=== PATIENT | female | born 1935 | race Caucasian/White ===

== ENCOUNTER 2018-12-17 13:25 | Day surgery (SDC) | payer OTHER, MEDICARE ==
--- NOTE | 2018-12-17 13:29 | PDHPUP ---
History & Physical Update H&P update statement: This history and physical update is based on an assessment of the patient which was completed after admission or registration (within 24 hours), but prior to the surgery/procedure. H&P update: H&P reviewed & patient examined, no change in patient's condition since H&P completed
[2018-12-17] MEDS ORDERED: fentaNYL 100 MCG/2 ML INJ IVP ONE (13:30)
[2018-12-17] MEDS ORDERED: MIDAZOLAM 2 MG/2 ML VIAL IVP ONE (13:30)
[2018-12-17] MEDS ORDERED: NS 500 ML IV ONE (13:30)
[2018-12-17] MEDS ORDERED: BENZOCAINE UNIT DOSE SPRAY HURRICAINE MM ONE (13:30)
--- NOTE | 2018-12-17 14:29 | PDANEPAE ---
ANE Past Medical History - Pulmonary History Hx Sleep Apnea: No ANE Review of Systems Review of Systems: ANE Patient History - Allergies Allergies/Adverse Reactions: evolocumab [From Ericdudley JaneVan] Allergy (Verified 12/17/18 14:07) furosemide Allergy (Verified 12/17/18 13:30) Boihxci-Qho-Eht Reductase Inhibitor Allergy (Verified 12/17/18 14:04) - Home Medications Home Medications: Coq-10 100 mg PO DAILY 12/17/18 [Last Taken 12/16/18 08:00] Ginkgo Biloba 500 mg PO DAILY 12/17/18 [Last Taken 12/16/18 08:00] Lisinopril 10 mg PO DAILY 12/17/18 [Last Taken 12/17/18 08:00] Meloxicam 15 mg PO DAILY 12/17/18 [Last Taken 12/16/18 21:00] Torsemide 20 mg PO DAILY 12/17/18 [Last Taken 12/16/18 08:00] - Smoking Hx Smoking Status: Never smoked ANE Labs/Vital Signs - Vital Signs Height: 163 cm Weight: 70.3 kg ANE Physical Exam - Airway Neck exam: decreased ROM Mallampati Score: Class 2 Mouth exam: normal dental/mouth exam - Pulmonary Pulmonary: no respiratory distress - Cardiovascular Cardiovascular: regular rate and rhythym - ASA Status ASA Status: III ANE Anesthesia Plan Total IV Anesthesia: Yes
[2018-12-17] MEDS ORDERED: PROPOFOL/EMULSION 500 MG/50 ML BOTTLE IV ONE (14:31)
[2018-12-17] MEDS ORDERED: NALOXONE HCL 0.4 MG/ML INJ IVP PRN (15:26)
[2018-12-17] MEDS ORDERED: ALBUTEROL 3 ML DEYVIAL IH PRN (15:26)
--- NOTE | 2018-12-17 15:26 | POSTANESTH ---
Post Anesthetic Evaluation Cardiovascular Status: Similar to Pre-Op Cond Respiratory Status: Similar to Pre-op Cond. Level of Consciousness/Mental Status: Mildly Sleepy, Arousable Pain Control: Adequate, Prn Tx Ordered Nausea/Vomiting Control: Adequate, Prn Tx Ordered Complications Possibly Related to Anesthesia: None Noted
--- NOTE | 2018-12-17 16:59 | ECHO ---
[email or web address] [address] [address] Main: [phone] Fax: Transesophageal Echocardiography Name: GUADALUPE POLANCO MR#: [id number] Study Date: 12/17/2018 Study Time: 02:46 PM Date of : 1935 Age: 83 year(s) Height: 162.6 cm (64 in.) Weight: 73.94 kg (163 lb.) BSA: 1.79 m2 Gender: Female Examination: HENRI Indication: Eval mitral regurgitation Image Quality: Contrast: Requested by: Lor Pineda Heart Rate: Rhythm: BP: / Procedure Staff Television Specialist: Trinh Sainz [facility] Reading Physician: Lor Pineda MD Requesting Provider: HENRI Exam Details Conclusions: Normal global systolic LV function. An agitated saline study was performed and was negative for intracardiac shunting. Height from mid interatrial septum to mitral coaptation is 3.3 cm.. No thrombus in left appendage. Severe mitral valve regurgitation is present. Two separate MR jets. The MR is central. This seems to be related to incomplete coaptation of A1-P1 and A2-P2. No prolapse. Mild thickening of the mitral leaflets. Posterior leaflet length is 1.28 cm.. The aortic valve is tri-leaflet. Mild aortic valve regurgitation is present. Mild tricuspid regurgitation is present. Measurements: Chambers Valvular Assessment AV/MV Valvular Assessment TV/PV Normal Normal Normal Name Value Range Name Value Range Name Value Range Additional Measurements: Findings: Left Ventricle: Normal global systolic LV function. Left Atrium: Patient: GUADALUPE POLANCO Study Date: 12/17/2018 Page 1 of 2 02:46 PM An agitated saline study was performed and was negative for intracardiac shunting. Height from mid interatrial septum to mitral coaptation is 3.3 cm.. Left Atrial Appendage: No thrombus in left appendage. Mitral Valve: Severe mitral valve regurgitation is present. Two separate MR jets. The MR is central. This seems to be related to incomplete coaptation of A1-P1 and A2-P2. No prolapse. Mild thickening of the mitral leaflets. Posterior leaflet length is 1.28 cm.. Aortic Valve: The aortic valve is tri-leaflet. Mild aortic valve regurgitation is present. Tricuspid Valve: Mild tricuspid regurgitation is present. l1n (No Signature Object) Patient: GUADALUPE POLANCO Study Date: 12/17/2018 Page 2 of 2 02:46 PM [id number]
== END 2018-12-17 16:50 | disposition home or self-care (01) ==
LOC: FCATH 13:25
PROVIDERS: ATTEND Internal Medicine Cardiovascular Disease
PROC: B245ZZ4 Ultrasonography of Left Heart, Transesophageal (ICD-10-PCS; principal; 2018-12-17)
DX: I35.1 Nonrheumatic aortic (valve) insufficiency (principal); I36.1 Nonrheumatic tricuspid (valve) insufficiency; Z91.81 History of falling
CPT/HCPCS: J2704

== ENCOUNTER 2018-12-25 05:49 | Day surgery (SDC) | payer OTHER, MEDICARE | END 2018-12-25 12:24 | disposition home or self-care (01) | LOC: FCATH 05:49 ==

== ENCOUNTER 2019-02-11 05:52 | Inpatient (IN) | payer OTHER ==
[2019-02-11] MEDS ORDERED: NS 1,000 ML IV ONE (06:11)
--- NOTE | 2019-02-11 06:23 | PDPROPOC ---
Sedation Plan of Care Sedation Plan of Care: mental status noted, patient educated of risks, benefits , alternatives, patient can tolerate sedation ASA Classification: ASA 3 Planned drugs: other Mallampati Score: Class 3 Mallampati Reference Image: Patient passed 3-3-2 rule?: Yes
[2019-02-11] MEDS ORDERED: LIDOCAINE 1% 300 MG/30 ML SDV ONE (06:51)
[2019-02-11] MEDS ORDERED: ceFAZolin 2 GM/DEXTROSE 100 ML IV ONE (07:00)
--- NOTE | 2019-02-11 07:06 | PDANEPAE ---
ANE History of Present Illness here for cecilia clip ANE Past Medical History - Cardiovascular History Hx Hypertension: Yes Hx Arrhythmias: No Hx Chest Pain: No Hx Coronary Artery / Peripheral Vascular Disease: Yes Hx CHF / Valvular Disease: No Hx Palpitations: No - Pulmonary History Hx COPD: No Hx Asthma/Reactive Airway Disease: No Hx Recent Upper Respiratory Infection: No Hx Oxygen in Use at Home: No Hx Sleep Apnea: No - Neurologic History Hx Cerebrovascular Accident: No Hx Seizures: No Hx Dementia: No - Endocrine History Hx Diabetes: No Hypothyroid: No Hyperthyroid: No Obesity: no - Renal History Hx Renal Disorders: No ANE Review of Systems Review of systems is: negative Review of Systems: - Exercise capacity Exercise capacity: <4 METS ANE Patient History - Allergies Allergies/Adverse Reactions: codeine Allergy (Verified 01/09/19 10:52) Vomiting evolocumab [From Repatha [employer]] Allergy (Verified 12/19/18 11:40) Itching Ypepqvx-Uuj-Hab Reductase Inhibitor Allergy (Verified 12/19/18 11:40) Other-Enter Comments - Home Medications Home medications: home medication list seen and reviewed Home Medications: Herbals/Supplements -Info Only 1 ea PO DAILY 12/17/18 [Last Taken 12/16/18 08:00 ] Lisinopril [Zestril 20 mg (*)] 20 mg PO DAILY 12/17/18 [Last Taken 12/25/18] Meloxicam 15 mg PO HS 12/17/18 [Last Taken 12/25/18] Torsemide [Demadex] 5 mg PO Q2D 12/17/18 [Last Taken 12/24/18] Cholecalciferol Vit D3 [Vitamin D3 (*)] 1,000 units PO DAILY 12/19/18 [Last Taken 12/24/18] Multivitamins [Multivitamin (*)] 1 each PO DAILY 12/19/18 [Last Taken 12/24/18] [place]-3 Fatty Acids [Fish Oil 1000 mg (*)] 1,000 mg PO DAILY 12/19/18 [Last Taken 12/24/18] Acetaminophen [Tylenol 325mg (*)] 325 mg PO Q6 PRN 01/09/19 [Last Taken Unknown] - NPO status NPO Status: no food or drink >8 hours - Smoking Hx Smoking Status: Never smoked ANE Labs/Vital Signs - Vital Signs Vital Signs: reviewed preoperatively; see RN documention for details Height: 162.56 cm Weight: 74.843 kg ANE Physical Exam - Airway Neck exam: FROM Mallampati Score: Class 1 Mouth exam: normal dental/mouth exam - Pulmonary Pulmonary: no respiratory distress - Cardiovascular Cardiovascular: regular rate and rhythym - ASA Status ASA Status: III ANE Anesthesia Plan Anesthesia Plan: general endotracheal anesthesia
[2019-02-11] MEDS ORDERED: PROPOFOL/EMULSION 500 MG/50 ML BOTTLE IV ONE (07:30)
[2019-02-11] MEDS ORDERED: fentaNYL 100 MCG/2 ML INJ ONE (07:37)
[2019-02-11] MEDS ORDERED: ROCURONIUM 50 MG/5 ML VIAL ONE (08:26)
[2019-02-11] MEDS ORDERED: PROTAMINE SULFATE 50 MG/5 ML VIAL IVP ONE ×2 (09:58→12:38)
[2019-02-11] MEDS ORDERED: SUGAMMADEX SODIUM 200 MG/2 ML VIAL IVP ONE (09:59)
[2019-02-11] MEDS ORDERED: ONDANSETRON 4 MG/2 ML VIAL ONE (09:59)
[2019-02-11] MEDS ORDERED: IBUPROFEN 800 MG TAB PO PRN (10:27)
[2019-02-11] MEDS ORDERED: ONDANSETRON DISINTEGRATING 4 MG TAB PO PRN (10:27)
[2019-02-11] MEDS ORDERED: ONDANSETRON 4 MG/2 ML VIAL IVP PRN (10:27)
[2019-02-11] MEDS ORDERED: ATROPINE SULFATE 1 MG/10 ML SYR IVP PRN (10:27)
[2019-02-11] MEDS ORDERED: hydrALAZINE 20 MG/ML VIAL IVP PRN (10:27)
--- NOTE | 2019-02-11 11:48 | ECHO ---
[email or web address] [address] [address] Main: [phone] Echocardiography Examination Transesophageal Name: GUADALUPE POLANCO MR#: [id number] Study Date: 02/11/2019 Study Time: 08:13 AM Date of : 1935 Age: 84 year(s) Height: ( ) Weight: ( ) BSA: Gender: Female Examination: HENRI Contrast: Image Quality: Rhythm: Heart Rate: BP: / Indication: Mitraclip Procedure Staff Referring Physician: Beverage Host: Brad Chapman RDCS Reading Physician: Lor Pineda MD Requesting Provider: Ordering Physician: Chet Merlos MD Indication: Mitraclip Measurements AV/MV Label Value Normal Value MV VTI 34.6 cm MV PGmax 6 mmHg MV PGmean 2 mmHg Conclusions HENRI done during MitraClip procedure. 1. Left ventricle is normal in size and systolic function. Normal wall motion. 2. The right ventricle is normal in systolic function 3. No left atrial appendage thrombus. 4. Successful implantation of an XT MitraClip coapting A2- P2 of the mitral leaflet. Mitral regurgitation decreased from severe to trace to mild. There is a second, small jet of MR that was identified pre-procedurlly and not intervened upon. Mean gradient was 1 mm mercury preoperatively and 2 mm of mercury postoperatively. Improvement in pulmonary vein inflow pattern indicating decrease left atrial pressure. 5. Mild aortic regurgitation 6. Mild tricuspid regurgitation 7. At the end of the case there is expected lclk-eu-sfzfb flow across the interatrial septum related to transseptal puncture. 8. Trivial pericardial effusion was present pre and post procedure. Patient: GUADALUPE POLANCO Study Date: 02/11/2019 Page 1 of 2 08:13 AM Findings Left Ventricle: The EF is visually estimated to be 65 %. There are no regional wall motion abnormalities. Right Ventricle: Right ventricular systolic function is normal. Left Atrium: Postprocedure there is expected rqms-wc-jpanr flow across the interatrial septum. Left Atrium Appendage: No thrombus is identified. Mitral Valve: Pre-procedurally, HENRI revealed two separate central MR jets. There is incomplete coaptation of A2-P2 with mild prolapse. There is mild thickening of the leaflets. Under HENRI transeptal puncture was guided in the 4 and 5-chamber view with careful assessment of the needle position in relation to the aorta using the parasternal short axis view. Positioning of the MitraClip guide wire/catheter and introduciton of the clip within the left venticle was performed in the 2,3 and 4 chamber apical view. One clip was successfully deployed joining A2-P2. The MR was reduced from severe to trace-mild. The mean MV pressure gradient was 1 mmHg pre clip and 2 mmHg post clip. The pulmonary veins pre MV clip velocity was blunted at 25.6 cm/s and post MV clip was 58.2cm/s . Aortic Valve: The aortic valve is structurally normal and trileaflet. Mild aortic regurgitation is present. Tricuspid Valve: Mild tricuspid regurgitation. Aorta: The aorta is normal. Pericardium: No change in trivial pericardial effusion pre and post procedure. Trivial pericardial effusion. Exam Details Procedure Ordered: HENRI (No Signature Object) Patient: GUADALUPE POLANCO Study Date: 02/11/2019 Page 2 of 2 08:13 AM [id number]
--- NOTE | 2019-02-11 12:21 | POSTANESTH ---
Post Anesthetic Evaluation Cardiovascular Status: Normal, Stable Respiratory Status: Normal, Stable Level of Consciousness/Mental Status: Can Participate in Eval Pain Control: Adequate, Prn Tx Ordered Nausea/Vomiting Control: Adequate, Prn Tx Ordered Complications Possibly Related to Anesthesia: None Noted
[2019-02-11] MEDS: ACETAMINOPHEN 325 MG TAB PO SCH ×4 (13:01→22:48)
[2019-02-11] MEDS ORDERED: Meloxicam [Meloxicam] 15 MG PO SCH (21:00)
--- NOTE | 2019-02-11 21:30 | CPIP ---
[f rep st] INVASIVE CARDIAC PROCEDURE DATE OF PROCEDURE: 02/11/2019 INDICATION FOR PROCEDURE: Severe mitral regurgitation. CO-SURGEONS: Dr. Mihir Mccollum, Dr. Jon Shook, Dr. Lor Pineda. PROCEDURE: 1. 5-Panamanian sheath in the left common femoral artery. 2. 8-Panamanian sheath in the right common femoral vein. 3. Upsized to a 20-Panamanian sheath. 4. Transseptal crossing with Husser catheter and wire. 5. Placement of a Toray wire left atrium. 6. Left atrial pressure measurements. 7. Placement of MitraClip XT x1 for severe mitral regurgitation. HISTORY: Briefly, this is an 83-year-old female with history of severe mitral regurgitation, as well as severe shortness of breath with minimal exertion. Patient had been thoroughly worked up as an out patient and seen CT Surgery and deemed to be of a frail candidate for open-heart surgery. Patient was consented for mitral clip placement. DESCRIPTION OF PROCEDURE: After informed consent, the patient was brought to [facility] where the patient w as electively intubated by Dr. Jon Shook. HENRI probes were placed by Dr. Lor Pineda. Patient was ad ministered 2 g of Ancef prior to the procedure, a Birch catheter was placed as well. 5-Panamanian sheath was placed in left common femoral artery. 8-Panamanian sheath placed in the right common vein, and the pa tient was administered a total of 10,000 heparin IV. At this point., the patient has a right groin wa s upsized to a 20-Panamanian sheath. After serial dilations, transseptal access was obtained with a trans septal sheath wire, Toraywire. The 20-Panamanian sheath was removed. A MitraClip sheath was placed in lef t atrium. Left atrial pressure was measured approximately at 25. MitraClip was then advanced and plac ed across the mitral leaflets, which revealed severe mitral regurgitation with A2-P2 prolapsing. The MitraClip XT was then placed across the leaflets and good grasp angle was obtained. The device was th en pulled back. Good grasp was obtained. Grippers were reduced. After assessing in multiple views wit h significant reduction of mitral regurgitation. color, the clip was deployed successfully. After dep loyment, there was only trivial to mild MR from moderately severe starting. After the clip was deploy ed, the LA pressure was reduced to approximately 15 mmHg. There was no more reversal of pulmonary vei n flow or blunting. The sheath was pulled back. The right groin was closed with a pursestring suture. The patient tolerated the procedure well with no complications. Of note, both gripper line and lock lines were removed prior to removal of the device. IMPRESSION: Successful placement of MitraClip XT x1 for severe mitral regurgitation reducing severe mitral regurgitation to trivial mitral regurgitation with reduction of left atrial pressure and rever vamsi of pulmonary vein flow blunting. PLAN: The patient will have 3 hours bed rest, discontinue Birch and left atrial arterial line in 3 h ours time. 3 hours bed rest. Patient will have a surface echo performed in 24 hours for further evalu ation. /[id number]/MODL
--- NOTE | 2019-02-11 22:25 | CPIP ---
[f rep st] INVASIVE CARDIAC PROCEDURE DATE OF PROCEDURE: 02/11/2019 INDICATION FOR PROCEDURE: Shortness of breath. CO-SURGEONS: Dr. Mihir Mccollum, Dr. Jon Shook, Dr. Lor Pineda. PROCEDURE: 1. 5-[place]er sheath in the left common femoral artery. 2. 8-[place]er sheath in the right common vein, upsized to a 20-[place]er catheter, replaced with a 24-[facility] MitraClip sheath. 3. Placement of a MitraClip XT via the transfemoral route. HISTORY: Briefly, this is an 84-year-old female with history of NYHA class II-III heart failure, who has a history of severe mitral regurgitation. The patient's symptoms have been worsening over the l ast month and she has been thoroughly evaluated as an outpatient for her underlying mitral valve regu rgitation. The patient was found to have severe degenerative mitral valvular disease and was seen by CT Surgery who deemed her to be suitable candidate for a MitraClip procedure. DESCRIPTION OF PROCEDURE: After informed consent, the patient was brought to [facility] where the patient was electively intubated. HENRI was performed by Dr. Lor Pineda. The patient was administered 2 g of Ancef prior to the procedure. A 5-H[place] Konger sheath was placed in the left common fe moral artery and an 8-[place]er sheath was placed in the right common vein. The 8-[place]er sheath in the right common vein was upsized over a stiff wire to a 20-[place] Konger sheath. The patient was administered a total of 14,000 heparin during the case. Transseptal access with accessed with a [place] catheter a nd wire under HENRI guidance. Left atrial pressure was measured to be approximately 25 mmHg. Of note, HENRI images showed no clot in the left atrial appendage with severe MR with blunting in the pulmonary veins bilaterally. The sheath was switched out for a MitraClip sheath after the 20-H[place] Konger sheath wa s removed. The MitraClip delivery system was then placed into the left atrium. The MitraClip was ma neuvered successfully to be above the mitral leaflets. The main regurgitant jet was over A2-P2. The device was then extended across the valve and arms were open. The clip was then pulled back and suc cessful grasp was made with a MitraClip XT with the A2-P2 graft. The device was then sealed down and HENRI images were obtained, which showed excellent reduction of mitral regurgitation from severe down to trivial. At this time, the device was deployed. The mitral valve was interrogated further showin g a mean gradient of approximately 1 mmHg. There was no further blunting of the pulmonary veins bila terally. The sheath was then pulled back. The right groin was closed in a pursestring suture. The patient tolerated the procedure well with no complications. IMPRESSION: Successful placement of MitraClip XT for severe degenerative mitral regurgitation. PLAN: The patient will be admitted to inpatient status. We will discontinue the sheath in the left groin when ACT is less than 170. Three hours bed rest. Discontinue the suture in the right groin in 24 hours. /[id number]/MODL
[2019-02-12 04:21] LABS: PLATELET COUNT 193 10^3/uL (150-400)
[2019-02-12] MEDS: ACETAMINOPHEN 325 MG TAB PO SCH ×2 (06:26→13:10)
--- NOTE | 2019-02-12 06:59 | PDCARPN ---
Cardiology Progress Note Chief Complaint: SOB Assessment/Plan: Assessment: SOB s/p mitraclip Plan: 02/12/19 06:55 doing well d/c suture in groin check echo if echo looks good, d/c home today Subjective: doing well Reviewed/Discussed With: multidisciplinary team Time Spent with Patient: greater than 25 minutes Time Spent with Patient: Greater than 25 minutes spent on this patients care, greater than 50% of time spent counseling, educating, and coordinating care regarding the above mentioned plan. Objective: Vital Signs (8 Hrs) Temp Pulse Resp BP Pulse Ox 02/12/19 03:51 36.7 C 54 L 17 112/64 96 02/11/19 23:05 36.7 C 73 12 96/54 L 96 Intake/Output (24 Hrs) 02/11/19 02/12/19 02/13/19 05:59 05:59 05:59 Intake Total 675 Output Total 1000 Balance -325 Intake: Oral (ml) 675 Output: Urine (ml) 1000 Catheter 900 Toilet 100 Other: Weight 74.843 kg Intake Quantity Yes Sufficient Result Diagrams: 02/12/19 03:43 02/12/19 03:43 - Physical Exam Constitutional: no apparent distress Eyes: PERRL Ears, Nose, Mouth, Throat: moist mucous membranes Cardiovascular: regular rate and rhythm Peripheral Pulses: 1+: femoral (R), femoral (L) Respiratory: clear to auscultate bilat Gastrointestinal: normoactive bowel sounds Genitourinary: no suprapubic tenderness Skin: no rashes Musculoskeletal: no muscular tenderness Neurologic: AAOx3 Psychiatric: cooperative ICD10 Worksheet Patient Problems: Problems Problem Status Onset Mitral regurgitation Acute - ICD10 Problem Qualifiers (1) Mitral regurgitation Qualifiers: Cardiac valve disease etiology: nonrheumatic Qualified Code(s): I34.0 - Nonrheumatic mitral (valve) insufficiency
--- NOTE | 2019-02-12 07:21 | GDS ---
[f rep st] DISCHARGE SUMMARY DISCHARGE DIAGNOSIS: MitraClip placement. HOSPITAL COURSE: Briefly, this is an 84-year-old female with history of severe symptomatic mitral re gurgitation. The patient was found to have degenerative mitral valve disease by HENRI and was evaluate d by CT surgery who deemed to be a suitable candidate for MitraClip replacement. The patient kang baca successful MitraClip placement on 02/11/2019 with 1 MitraClip XT device. Postprocedure, the patie nt has done very well. She did have a slight drop of her hemoglobin from 12.4 to 9.8. However, she has been ambulating in the halls without problems. Groins are soft. Blood pressure and heart rate h ave been stable. The patient's creatinine is normal. The patient will have her suture discontinued in the groin this morning. She will have of an echocardiogram done as well this morning. If the ech ocardiogram shows no significant changes from her post clip deployment, the patient will be discharge d home this morning with her home medications. She will follow up in the office in 1 week's time. /[id number]/MODL
--- NOTE | 2019-02-12 08:32 | CPEKG ---
Test Reason : Blood Pressure : / mmHG Vent. Rate : 079 BPM Atrial Rate : 078 BPM P-R Int : 155 ms QRS Dur : 107 ms QT Int : 395 ms P-R-T Axes : 072 047 -55 degrees QTc Int : 453 ms Sinus rhythm Probable left ventricular hypertrophy Borderline T abnormalities, diffuse leads Confirmed by Enzo Nance ([id number]) on 02/12/2019 8:32:40 AM Referred By: Ceht Merlos Confirmed By:Enzo Nance
[2019-02-12] MEDS ORDERED: CHOLECALCIFEROL VIT D3 1,000 UNITS TAB PO SCH (09:00)
[2019-02-12] MEDS ORDERED: LISINOPRIL 20 MG TAB PO SCH (09:00)
--- NOTE | 2019-02-12 09:14 | PDMN ---
Medical Necessity Medical necessity: MCG GRG cardiovascular sgy 1 day IPO sgy CPT 04229 transcatheter mitral valve repair. - OP: Mitraclip, --Auth [id number] INPT- 36181
--- NOTE | 2019-02-12 09:53 | ECHO ---
[email or web address] [address] Main: [phone] Echocardiography Examination Transthoracic Name: GUADALUPE POLANCO MR#: [id number] Study Date: 02/12/2019 Study Time: 07:43 AM Date of : 1935 Age: 84 year(s) Height: 162.6 cm (64 in.) Weight: 74.84 kg (165 lb.) BSA: 1.8 m2 Gender: Female Examination: Echo Contrast: Image Quality: Rhythm: Heart Rate: 49 bpm BP: 112 mmHg/61 mmHg Indication: Post XT MitraClip Procedure Staff Referring Physician: Platen Drier Operator: Brad Chapman FAREED Reading Physician: Lor Pineda MD Requesting Provider: Ordering Physician: Chet Merols MD Indication: Post XT MitraClip Measurements Chambers AV/MV Label Value Normal Value Label Value Normal Value LVOTd 1.9 cm (1.8cm - 2cm) AR PHT 0.73 s LVOT VTI 24.2 cm (18cm - 22cm) AR PHT 728 ms LVDd, 2D 5.1 cm (3.9cm - 5.3cm) AR Vmax 4.32 m/s LVDs, 2D 3.2 cm (2.1cm - 4cm) AV PGmax 12 mmHg IVSd, 2D 0.9 cm (0.6cm - 1.1cm) AV PGmean 6 mmHg LVPWd, 2D 0.9 cm AV Vmax 1.76 m/s LVEF, 2D 67 % (54% - 74%) KARLA (VTI) 1.8 cm2 LVOT PGmean 2 mmHg MV E Vmax 1.22 m/s LVOT Vmean 0.71 m/s MV A Vmax 0.93 m/s RVDd, 2D 2 cm (1.9cm - 3.8cm) MV E/A 1.31 LA Volume, BP 74 ml (22ml - 52ml) MV E/E' lateral 15.6 LADs, 2D 3.5 cm (2.7cm - 3.8cm) MV E/E' septal 25.5 (0.45 - 1.25) LAESV index, BP 41.1 ml/m2 MV DT 342 ms Additional Vessels MV E' septal 0.05 m/s Label Value Normal Value MV VTI 48 cm AoRoot, MM 3.1 cm (2.2cm - 3.7cm) MVA D (continuity eq.) 1.4 cm2 MV PGmax 5 mmHg MV PGmean 2 mmHg MV PHT 0.09 s Patient: GUADALUPE POLANCO Study Date: 02/12/2019 Page 1 of 3 07:43 AM MVA PHT 2.5 cm2 MV E' lateral 0.08 m/s MV E/E' mean 18.77 MV PHT 89 ms MV E' mean 0.06 m/s TV/PV Label Value Normal Value RA Pressure 5 mmHg RVSP 36 mmHg TR Pmax 31 mmHg TR Vmax 2.8 m/s UT End pozo Douglas 1.17 cm/s PV PGmax 4 mmHg PV Vmax, Caliper 1.05 m/s (0.6m/s - 0.9m/s) Conclusions 1. The left ventricle is normal in size and systolic function. Ejection fraction 65%. No regional wall motion abnormalities. Grade 2 diastolic dysfunction. 2. The right ventricle is normal in size and systolic function. 3. [id number] left atrial dilation. 4. 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 There is trace to mild mitral regurgitation. The mean gradient is 2 mm of mercury. The MitraClip is well seated. 5. Mild tricuspid regurgitation with normal estimated pulmonary artery pressure. 6. Mild aortic regurgitation. 7. No significant pericardial effusion. 8. Compared with HENRI 12/17/2018 MitraClip has been implanted with reduction in mitral regurgitation from severe to trace/mild Findings Left Ventricle: Left ventricle is normal in size. Normal global systolic left ventricular function. The EF is visually estimated to be 65 %. There are no regional wall motion abnormalities. Grade II Diastolic Dysfunction. Right Ventricle: Normal size right ventricle. Right ventricular systolic function is normal. Left Atrium: The left atrium is mildly to moderately dilated. Right Atrium: The right atrium is mildly dilated. Mitral Valve: There is a XT MitraClip coapting A2-P2 of the mitral leaflet. There is trace to mild MR, There is a small jet of MR. There is a mean gradient 2 mm. The MitraClip is well seated . Aortic Valve: Aortic leaflets are structurally normal. Mild aortic regurgitation is present. There is no aortic stenosis. Tricuspid Valve: Tricuspid valve leaflets are normal in appearance and function. Mild tricuspid regurgitation. Right Ventricular systolic pressure is measured at 36 mmHg. Pulmonary artery pressure normal. Pulmonic Valve: Pulmonic leaflets are normal in appearance and function. Aorta: The aorta is normal. The aortic root size in M-mode measures 3.1 cm. Aorta Measurements AoRoot, MM is 3.1 cm. Patient: GUADALUPE POLANCO Study Date: 02/12/2019 Page 2 of 3 07:43 AM Pericardium: Epicardial fat pad is noted. No pericardial effusion. Exam Details Procedure Ordered: Echo (No Signature Object) Patient: GUADALUPE POLANCO Study Date: 02/12/2019 Page 3 of 3 07:43 AM [id number]
[2019-02-12 11:21] VITALS: BP 108/50
--- NOTE | 2019-02-12 12:14 | PDCARPN ---
Cardiology Progress Note Assessment/Plan: Assessment: Mitral Clip placement by Real Merlos MD 02/11/19. No SOB s/p mitraclip She is doing well and anxious for discharge process to be complete. Left groin suture removed with out difficulty. She understands she is on bedrest for one hour. Right groin site with no bleeding induration or tenderness. ECHO done with no finding of abnormalities. She is stable for d/c home today Elvia RN Coordinator for Mitral Clip has been in to give her teaching and discharge information. Follow up appointments are set up. Plan: Discharge Home 02/12/19 12:07 02/12/19 12:15 02/12/19 12:17 Subjective: I am ready to leave. My ride will be here at 1:30. Reviewed/Discussed With: multidisciplinary team, other (Dr Merlos) Time Spent with Patient: greater than 25 minutes Time Spent with Patient: Greater than 25 minutes spent on this patients care, greater than 50% of time spent counseling, educating, and coordinating care regarding the above mentioned plan. Objective: Vital Signs (8 Hrs) Temp Pulse Resp BP Pulse Ox 02/12/19 11:19 36.4 C 55 L 14 108/50 L 98 02/12/19 08:00 36.6 C 54 L 12 129/67 H 98 Intake/Output (24 Hrs) 02/11/19 02/12/19 02/13/19 05:59 05:59 05:59 Intake Total 1350 Output Total 2000 550 Balance -650 -550 Intake: Oral (ml) 1350 Output: Urine (ml) 2000 550 Catheter 1800 Toilet 200 550 Other: Weight 74.843 kg Intake Quantity Yes Sufficient Result Diagrams: 02/12/19 03:43 02/12/19 03:43 - Physical Exam Constitutional: no apparent distress Cardiovascular: regular rate and rhythm, no rubs Peripheral Pulses: 2+: femoral (R), femoral (L) Respiratory: clear to auscultate bilat, no crackles Skin: warm Neurologic: AAOx3 Psychiatric: cooperative, interactive ICD10 Worksheet Patient Problems: Problems Problem Status Onset Mitral regurgitation Acute
[2019-02-13] MEDS ORDERED: TORSEMIDE 10 MG TAB PO SCH (09:00)
--- NOTE | 2019-02-14 10:20 | CPEKG ---
Test Reason : OPEN Blood Pressure : / mmHG Vent. Rate : 079 BPM Atrial Rate : 079 BPM P-R Int : 143 ms QRS Dur : 104 ms QT Int : 350 ms P-R-T Axes : 065 031 -80 degrees QTc Int : 402 ms Sinus rhythm LVH with secondary repolarization abnormality Confirmed by Enzo Nance ([id number] on 02/14/2019 10:19:45 AM Referred By: Chet Merlos Confirmed By:Enzo Nance
== END 2019-02-12 13:52 | disposition home or self-care (01) | DRG 229 ==
LOC: F3N 05:52 → F2N 10:46 → F2W 17:50
PROVIDERS: ADMIT Internal Medicine Cardiovascular Disease; ATTEND Internal Medicine Cardiovascular Disease
PROC: B245ZZ4 Ultrasonography of Left Heart, Transesophageal (ICD-10-PCS; principal; 2019-02-11)
PROC: 02UG3JZ Supplement Mitral Valve with Synthetic Substitute, Percutaneous Approach (ICD-10-PCS; principal; 2019-02-11)
DX: I34.0 Nonrheumatic mitral (valve) insufficiency (principal); Z00.6 Encounter for examination for normal comparison and control in clinical research program
CPT/HCPCS: C1769; C1893; C1894; J0690; J1644; J2405; J2704; J2720; J3010